=== PATIENT | female | born 1985 | race African-American/Black ===

== ENCOUNTER 2025-08-08 14:01 | Outpatient (CLI) | payer BC | END 2025-08-08 14:02 | disposition home or self-care (01) | LOC: SCSULT 14:01 | PROVIDERS: ATTEND Student in an Organized Health Care Education/Training Program | DX: M79.604 Pain in right leg (principal); M79.89 Other specified soft tissue disorders; M25.561 Pain in right knee; M25.461 Effusion, right knee | CPT/HCPCS: 76999 ==